=== PATIENT | male | born 1995 | race Caucasian/White ===

== ENCOUNTER 2021-01-11 11:49 | Emergency (ER) | payer OTHER, SELFPAY ==
[2021-01-11 11:56] VITALS: BP 121/65; PULSE 89; RESP 20; TEMP 36.7; O2SAT 100
--- NOTE | 2021-01-11 12:10 | ED.UPPEXIN ---
HPI - Extremity Injury (Upper) General Chief Complaint: Extremity Injury, Upper Stated Complaint: cold extremity, known broken collarbone Time Seen by Provider: 01/11/21 11:55 Source: patient History of Present Illness HPI narrative: Patient presents for a second opinion regarding his clavicle fracture. Patient reports he fell off his skateboard on Tuesday was seen at [facility] had x-rays performed was told those collarbone was fractured he was placed in a sling and instructed to follow-up with orthopedic doctors. Since then he has felt some movement in his clavicle reports his pain is currently tolerable denies focal numbness or weakness during my evaluation. Patient was not sure if he should get surgery sooner rather than later to help the healing process. Related Data Allergies Allergy/AdvReac Type Severity Reaction Status Date / Time 1. AMOXICILLIN Allergy Unknown Uncoded 09/04/02 13:42 NKFA Allergy Unknown Uncoded 09/04/02 13:42 Review of Systems Review of Systems: CONSTITUTIONAL: Denies fever, chills, or sweats. EYES: Denies visual changes, redness, or discharge. ENT: Denies rhinorrhea, congestion, sore throat, or otalgia. CARDIOVASCULAR: Denies chest pain, palpitations, or edema. RESPIRATORY: Denies cough or dyspnea. GASTROINTESTINAL: Denies abdominal pain, nausea, vomiting, or diarrhea. GENITOURINARY: Denies dysuria or hematuria. SKIN: Denies rash or itching. MUSCULOSKELETAL: Denies back pain, joint pain, or myalgia. NEUROLOGIC: Denies headache, numbness, dizziness, or weakness. PSYCHIATRIC: Denies anxiety or depression. All systems reviewed & are unremarkable except as noted in HPI and below PMFSH Past Medical History Medical History (Updated 01/11/21 @ 12:15 by Braxton Owens MD) Patient denies significant medical history Social History Social History (Updated 01/11/21 @ 12:12 by Braxton Owens MD) Substance use: never Exam Narrative: GENERAL: Well-appearing, well-nourished, and in no acute distress. HEAD: Normocephalic, atraumatic. EYES: PERRLA and EOMI. ENT: Nares clear, no rhinorrhea or epistaxis. Mucous membranes moist. NECK: Supple. No masses. No JVD EXTREMITIES: Edema noted to the mid left clavicle there is tenderness there there is no open or draining wounds there is no skin tenting. Patient has 5 out of 5 strength in the bilateral upper extremities with sensation intact to light touch cap refill is less than 2 seconds patient has symmetric radial and ulnar pulses SKIN: Warm, dry, no rash. NEURO: No focal deficits. Alert and oriented x3. PSYCH: Normal mood and affect. Course Vital Signs Vital signs: Vital Signs Temperature 36.7 C 01/11/21 11:56 Pulse Rate 89 01/11/21 11:56 Respiratory Rate 20 01/11/21 11:56 Blood Pressure 121/65 01/11/21 11:56 Pulse Oximetry 100 01/11/21 11:56 Temperature 36.7 C 01/11/21 11:56 Pulse Rate 89 01/11/21 11:56 Respiratory Rate 20 01/11/21 11:56 Blood Pressure 121/65 01/11/21 11:56 Pulse Oximetry 100 01/11/21 11:56 MDM - Extremity Injury (Upper) MDM Narrative Medical decision making narrative: Patient presents requesting second opinion regarding his clavicle fracture. He reports he feels like his clavicle is moving he is unsure if he needed surgery versus been frustrated as he was told to rest but he would like to assist with ADLs at home. He denied any focal numbness or weakness on my exam he denies any new trauma. Patient brought in records from other facility which were reviewed with the patient. Patient was offered imaging for reevaluation however with a reassuring exam they are unlikely to change patient's clinical management. Patient already has contact information for an orthopedic surgeon and is instructed to call them Tuesday to set up a follow-up appointment to discuss operative versus nonoperative management. Patient had all his questions addressed and was comfortable without repeat imaging and will cont
== END 2021-01-11 12:21 | disposition home or self-care (01) ==
PROVIDERS: Emergency Provider Emergency Medicine; PCP Physician Assistant
DX: S42.022D Displaced fracture of shaft of left clavicle, subsequent encounter for fracture with routine healing (principal); V00.131D Fall from skateboard, subsequent encounter
CPT/HCPCS: 99282

== ENCOUNTER 2023-11-28 13:50 | Emergency (ER) | payer OTHER, SELFPAY ==
--- NOTE | ~2023-11-28 | XR_ITS ---
EXAMINATION: XR hand LT min 3V DATE: 11/28/2023 14:45 INDICATION: Posterior left hand swelling TECHNIQUE: Posteroanterior, oblique and lateral views of the left hand were obtained. COMPARISON: None. FINDINGS: There is prominent soft tissue swelling over the dorsum of the hand. No soft tissue gas or radiopaque foreign bodies. Alignment is normal. No fracture. Joint spaces are normal. Soft tissues are unremark able. IMPRESSION: 1. Nonspecific dorsal soft tissue swelling at the left hand. No osseous abnormality, soft tissue gas or radiopaque foreign bodies. Reviewed, dictated and finalized at location B. IMPRESSION: 1. Nonspecific dorsal soft tissue swelling at the left hand. No osseous abnorma lity, soft tissue gas or radiopaque foreign bodies.
[2023-11-28 13:56] VITALS: BP 121/60; PULSE 82; RESP 16; TEMP 37; O2SAT 100
--- NOTE | 2023-11-28 14:13 | ED.UPPEXIN ---
HPI - Extremity Injury (Upper) General Chief Complaint: Extremity Injury, Upper Stated Complaint: swollen hand after tattoo Time Seen by Provider: 11/28/23 14:10 Source: patient Mode of arrival: ambulatory Limitations: no limitations History of Present Illness HPI narrative: Focused HPI: Pt is a 28-year-old male who presents to the ER with a swollen L hand after getting a tattoo yesterday. He reports minimal pain at this time, but noticed the increased swelling when he woke up this morning. Pt has some red streaks going up his L arm that appear to be scratches, but he denies itching the site. He denies IV drug use and reports his sister (who did the tattoo) is a licensed hip hop artist. Pt is also requesting STD testing, as he hasn't seen a doctor in years. Pt denies chest pain, shortness of breath, or other signs/symptoms of illness. GENERAL: Well-appearing, well-nourished, and in no acute distress. HEAD: Normocephalic, atraumatic. CHEST: Clear to auscultation. ?No respiratory distress. HEART: Regular rate and rhythm.? NEURO: ?Alert and oriented x3. SKIN: Pt has a swollen L hand that is covered in a completely black tattoo. His radial pulses are hard to locate d/t swelling. He has decreased ROM in his 4th and 5th metatarsals d/t swelling. Pt's L hand is warm to the touch, but it is difficult to determine whether or not there is redness because his arm is black from tattoo ink. There is no drainage from the site, but he does have 3-4 linear red streaks from his mid forearm that go up towards his bicep that appear to be scratches. Patient screened in triage and initial orders placed.? ?Additional care and disposition to be based upon?diagnostic testing and treatment. Related Data Allergies Allergy/AdvReac Type Severity Reaction Status Date / Time 1. AMOXICILLIN Allergy Unknown Uncoded 09/04/02 13:42 NKFA Allergy Unknown Uncoded 09/04/02 13:42 Review of Systems Review of Systems: All systems reviewed & are unremarkable except as noted in HPI and below PMFSH Past Medical History Medical History Patient denies significant medical history Social History Social History Substance use: never Exam Narrative: GENERAL: Well appearing, well-nourished, non-toxic, in no acute distress. RESPIRATORY: Airway patent, respirations nonlabored. Clear to auscultation bilaterally, no rales, rhonchi, wheezing. CARDIOVASCULAR: Regular rate and rhythm without murmurs, rubs, or gallops. Peripheral pulses 2+ and equal bilaterally. ABDOMINAL: Soft, nontender, nondistended, no hepatosplenomegaly. Normoactive BS. MUSCULOSKELETAL: Moves all extremities. Limited ROM on L hand d/t swelling. No redness noted, but pt's hand covered in black tattoo ink. NEURO: A&O X3. Speech clear. Cranial nerves II-XII grossly intact. Steady gait. No ataxic movements. PSYCHIATRIC: Appropriate mood and affect. Normal interaction. Course Vital Signs Vital signs: Vital Signs Temperature 37.0 C 11/28/23 13:56 Pulse Rate 82 11/28/23 13:56 Respiratory Rate 16 11/28/23 13:56 Blood Pressure 121/60 11/28/23 13:56 Pulse Oximetry 100 11/28/23 13:56 Temperature 36.5 C 11/28/23 16:50 Pulse Rate 78 11/28/23 16:50 Respiratory Rate 18 11/28/23 16:50 Blood Pressure 120/77 11/28/23 16:50 Pulse Oximetry 98 11/28/23 16:50 MDM - Extremity Injury (Upper) MDM Narrative Medical decision making narrative: MSE in triage Differential Diagnosis Differential diagnosis: Likely sprain and strain of wrist, fracture of hand and other (infection, cellulitis, reaction to tattoo ink ) Lab Data Attestation: I reviewed the patient's lab results. 11/28/23 14:13 11/28/23 14:13 Labs: Lab Results 11/28/23 11/28/23 Range/Units 14:13 14:39 WBC 8.2 (4.5-10.0) K/mm3 RBC 4.09 L (4.6-6.20)
[2023-11-28] MEDS: IBUPROFEN 600 MG TABLET PO (14:18)
[2023-11-28 14:21] LABS: Basophils Absolute Auto 0.1 K/mm3 (0.0-0.1); Basophils Percent Auto 0.9 % (0.2-1.2); Eosinophils Absolute Auto 0.1 K/mm3 (0-0.3); Eosinophils Percent Auto 1.5 % (0-4.4); Hematocrit 38.1 % (42.0-52.0); Hemoglobin 13.2 g/dL (14.0-18.0); Immature Granulocyte Absolute 0.02 K/mm3 (0.00-0.031); Immature Granulocyte Percent A 0.2 % (0-0.5); Lymphocytes Absolute Auto 2.49 K/mm3 (0.9-3.2); Lymphocytes Percent Auto 30.5 % (18.3-44.2); Mean Corpuscular HGB Conc 34.6 g/dl (32-36); Mean Corpuscular Hemoglobin 32.3 pg (26-34); Mean Corpuscular Volume 93.2 fl (80-100); Mean Platelet Volume 10.7 fl (7.4-10.4); Monocytes Absolute Auto 0.5 K/mm3 (0.1-0.6); Monocytes Percent Auto 6.3 % (2.6-8.5); Neutrophils Percent Auto 60.6 % (45.5-73.1); Platelet Count Result 146 k/mm3 (150-375); Red Blood Count 4.09 M/mm3 (4.6-6.20); Red Cell Distribution Width 12.6 % (11.5-14.5); White Blood Count 8.2 K/mm3 (4.5-10.0)
[2023-11-28 14:29] LABS: Lactic Acid Reflex 0.8 mmol/L (0.7-2.0)
[2023-11-28 14:34] LABS: Alanine Aminotransferase 12 U/L (6-50); Albumin Level 4.3 g/dL (3.5-5.1); Alkaline Phosphatase 40 U/L (38-126); Anion Gap 5 mmol/L (4-12); Aspartate Amino Transferase 17 U/L (17-59); Bilirubin,Total 0.6 mg/dL (0.2-1.3); Blood Urea Nitrogen 13 mg/dL (9-20); CRP 1.4 mg/dL (<1.0); Calcium 8.6 mg/dL (8.4-10.2); Carbon Dioxide 29 mmol/L (22-30); Chloride 101 mmol/L (98-107); Estimated CRCL calculation 104 ml/min; Estimated Glomerular Filt Rate > 60; Glucose 93 mg/dL (65-110); Potassium 3.7 mmol/L (3.4-5.0); Sodium 135 mmol/L (137-145)
[2023-11-28 14:53] LABS: Add Urine Microscopic? YES; Appearance Urine Clear (Clear); Bacteria Urine None Seen /hpf; Bilirubin Urine Negative (Negative); Blood Urine Negative (Negative); Color Urine Yellow (Yellow); Glucose Urine UA Negative (Negative); Ketones Urine Negative (Negative); Leukocyte Esterase Ur Trace LEU/UL (Negative); Nitrate Urine Negative (Negative); Non Pathogenic Casts 0-2; Protein Urine Trace mg/dL (Negative); RBC Urine 0-2 /hpf (0-2); Specific Grav Ur 1.026 (1.001-1.035); Squamous Epithelial Cell Urine None Seen /hpf (Few); WBC Urine 0-5 /hpf (0-3)
--- NOTE | 2023-11-28 16:16 | PC.NURSE ---
Pt placd in exam room, left hand & forearm edematous, weeping in areas. Pt left hand completely covered in black tattoo that he received last night. CMS intact.
[2023-11-28 16:18] LABS: Chlamydia trachomatis NOT DETECTED (NOT DETECTE); Neisseria gonorrhoeae PCR NOT DETECTED (NOT DETECTE)
[2023-11-28 16:50] VITALS: BP 120/77; PULSE 78; RESP 18; TEMP 36.5; O2SAT 98
== END 2023-11-28 16:52 | disposition home or self-care (01) ==
LOC: ANHED 16:42
PROVIDERS: Registered Nurse; Emergency Provider Emergency Medicine; PCP Physician Assistant
DX: R60.9 Edema, unspecified (principal); X58.XXXA Exposure to other specified factors, initial encounter
CPT/HCPCS: 36415; 73130; 80053; 81001; 83605; 85025; 86140; 87491; 87591; 99283; A9270